=== PATIENT | male | born 1970 | race African-American/Black ===

== ENCOUNTER 2021-07-04 12:39 | Emergency (ER) | payer MEDICAID ==
[~2021-07-04] VITALS: Ht 162.6 cm; Wt 78.0 kg
[~2021-07-04 12:39] MED LIST: DILANTIN
[2021-07-04] MEDS ORDERED: LIDOCAINE HCL/PF 1% 10 MG/ML 5ML VIAL INFIL ONE (13:45)
[2021-07-04] MEDS ORDERED: TETANUS, DIPHTHERIA, PERTUSSIS VAC/PF 0.5ML (>10YR OLD) IM ONE (13:45)
[2021-07-04] MEDS ORDERED: BACITRACIN ZINC OINT UDPKT TOP ONE (13:45)
[2021-07-04] MEDS ORDERED: IBUPROFEN 800MG TABLET PO ONE (15:15)
[2021-07-04] MEDS ORDERED: AMOX1TAB16 MT (16:02)
[2021-07-04] MEDS ORDERED: PHEN100C4 MT (16:02)
[2021-07-04 16:18] VITALS: BP 118/85
== END 2021-07-04 16:20 | disposition home or self-care (01) ==
LOC: ER 12:39
DX: S61.412A Laceration without foreign body of left hand, initial encounter (principal); Z86.59 Personal history of other mental and behavioral disorders; W18.30XA Fall on same level, unspecified, initial encounter; Y93.89 Activity, other specified; Y92.89 Other specified places as the place of occurrence of the external cause; Y99.8 Other external cause status
CPT/HCPCS: 12002; 73130; 90471; 90715; 99283; A4217; J3490; Z7610

== ENCOUNTER 2023-06-13 17:48 | Emergency (ER) | payer MEDICAID, OTHER ==
[~2023-06-13] VITALS: Ht 167.6 cm; Wt 84.0 kg
[~2023-06-13 17:48] MED LIST changes: +AMOX1TAB16 MT; +PHEN100C4 MT
[2023-06-13 17:52] VITALS: BP 133/88; PULSE 92; RESP 16; TEMP 98.9; O2SAT 94
== END 2023-06-13 19:42 | disposition left against medical advice (07) ==
LOC: ER 17:48
DX: S09.90XA Unspecified injury of head, initial encounter (principal); Z86.59 Personal history of other mental and behavioral disorders; X58.XXXA Exposure to other specified factors, initial encounter; Y93.89 Activity, other specified; Y92.89 Other specified places as the place of occurrence of the external cause; Y99.8 Other external cause status
CPT/HCPCS: 99284